=== PATIENT | female | born 1970 | race Caucasian/White ===

== ENCOUNTER 2019-06-04 18:15 | Emergency (ER) | payer BC, SELFPAY ==
--- NOTE | 2019-06-04 18:33 | ED.NAVMDI ---
HPI - Nausea/Vomiting/Diarrhea General Chief complaint: Nausea/Vomiting/Diarrhea Stated complaint: muscle aches, dry mouth, back pain, vomitting Time Seen by Provider: 06/04/19 18:34 Source: patient and RN notes reviewed Mode of arrival: ambulatory Limitations: no limitations History of Present Illness HPI Narrative: patient states she has a history of acute renal failure off and on. She can feel when she gets dehydrated. She says that she has had some nausea vomiting and diarrhea. She has had this many times in the past. She usually gets some fluid through IV feels better. MD elicited complaint: nausea, vomiting and diarrhea Onset (ago): hour(s) (10) Description of vomiting: food contents Description of diarrhea: lose Associated nausea: Yes Associated abdominal pain: No Exacerbating factors: eating Relieving factors: none Associated symptoms: myalgias and loss of appetite Related Data Home Medications Medication Instructions Recorded Confirmed albuterol sulfate 1.25 mg/3 mL 1.25 mg INHALATION Q4-6H PRN 06/02/19 06/04/19 solution for nebulization albuterol sulfate 90 mcg/actuation 1 inhalation INHALATION Q4H 06/02/19 06/04/19 aerosol inhaler atorvastatin 40 mg tablet 40 mg PO DAILY 06/02/19 06/04/19 budesonide-formoterol HFA 160 2 puff INHALATION Q12H 06/02/19 06/04/19 mcg-4.5 mcg/actuation aerosol inhaler compress.stocking,knee,reg,lrg #2 each 06/02/19 06/04/19 hydroxychloroquine 200 mg tablet 200 mg PO BID 06/02/19 06/04/19 leflunomide 20 mg tablet 20 mg PO DAILY 06/02/19 06/04/19 loratadine 10 mg capsule 10 mg PO DAILY 06/02/19 06/04/19 metoprolol succinate 50 mg 50 mg PO DAILY 06/02/19 06/04/19 tablet,extended release 24 hr nystatin 100,000 unit/gram topical 1 applic TOPICAL BID 06/02/19 06/04/19 powder omeprazole 20 mg capsule,delayed 20 mg PO DAILY 06/02/19 06/04/19 release potassium chloride 20 mEq 20 meq PO DAILY 06/02/19 06/04/19 tablet,extended release pregabalin 200 mg capsule 200 mg PO BID 06/02/19 06/04/19 quetiapine 50 mg tablet 50 mg PO BID 06/02/19 06/04/19 lisinopril 10 mg BYMOUTH DAILY 06/04/19 06/04/19 sertraline 100 mg DAILY 06/04/19 06/04/19 Allergies Allergy/AdvReac Type Severity Reaction Status Date / Time Iodine and Iodide Containing Allergy Severe Anaphylactic Verified 06/02/19 16:22 Produc Shock cephalexin Allergy Intermediate NAUSEA/ Verified 06/02/19 16:22 VOMITING codeine Allergy Unknown Mood swings Verified 06/02/19 16:22 erythromycin base Allergy Unknown extreme Verified 06/02/19 16:22 vomitting morphine Allergy Unknown Hives Verified 06/02/19 16:22 Penicillins Allergy Unknown Hives Verified 06/02/19 16:22 clarithromycin Allergy Diarrhea Verified 06/04/19 18:44 cefazolin AdvReac Intermediate Hives / Verified 06/02/19 16:22 Red Face Review of Systems Constitutional: Constitutional: Denies chills and Denies fever(s) ENT: Reports system reviewed and no additional complaints, except as documented Cardiovascular: Cardiovascular: Reports no additional cardiovascular complaints Respiratory: Respiratory: Reports no additional respiratory complaints Gastrointestinal: Gastrointestinal: Denies constipation and Denies heartburn Genitourinary: Genitourinary: Reports no additional female genitourinary complaints and Denies dysuria Musculoskeletal: Musculoskeletal: Reports back pain (Chronic) Integumentary/Breasts: Skin/Breast: Denies erythema and Denies rash Neurologic: Reports system reviewed and no additional complaints, except as documented Psychiatric: Psychiatric: Reports no additional psychiatric complaints [facility] Past Medical History Medical History COPD (chronic obstructive pulmonary disease) HANSEN (dyspnea on exertion) Dyslipidemia Edema Essential hypertension History of pulmonary embolism History of stroke Surgical History Surgical History (Reviewed 06/04/19 @ 18:45 by Kristofer Frazier
[2019-06-04 18:38] VITALS: BP 128/68; PULSE 92; RESP 16; TEMP 36.6; O2SAT 96
[2019-06-04 18:59] LABS: Add Urine Microscopic? YES; Appearance Urine Cloudy (Clear); Basophils Percent Auto 0.9 % (0.0-1.0); Bilirubin Urine 1+ (Negative); Blood Urine Negative (Negative); Color Urine Yellow (Yellow); Eosinophils Absolute Auto 0.51 K/mm3 (0.02-0.50); Eosinophils Percent Auto 4.5 % (1.0-6.0); Glucose Urine UA Negative (Negative); Hematocrit 38.8 % (35.0-49.0); Hemoglobin 12.2 g/dL (12.0-15.0); Immature Granulocyte Absolute 0.03 K/mm3 (0.00-0.00); Immature Granulocyte Percent A 0.3 % (0.0-0.0); Ketones Urine 1+ (Negative); Leukocyte Esterase Ur Negative LEU/UL (Negative); Lymphocytes Absolute Auto 1.33 K/mm3 (1.10-4.50); Lymphocytes Percent Auto 11.8 % (18.0-42.0); Mean Corpuscular HGB Conc 31.4 g/dL (32.0-36.0); Mean Corpuscular Hemoglobin 28.7 pg (27.0-31.0); Mean Corpuscular Volume 91.3 fL (78.0-102.0); Mean Platelet Volume 10.9 fl (9.2-11.8); Monocytes Absolute Auto 1.13 K/mm3 (0.10-0.90); Neutrophils Absolute Auto 8.2 K/mm3 (1.7-7.2); Neutrophils Percent Auto 72.5 % (50.0-70.0); Nitrate Urine Negative (Negative); Platelet Count Result 212 K/mm3 (150-420); Protein Urine 3+ (Negative); Red Blood Count 4.25 M/mm3 (4.20-5.40); Red Cell Distribution Width 14.2 % (11.6-14.4); Specific Grav Ur >= 1.030 (1.010-1.020); Urobilinogen Urine 0.2 mg/dL (0.2-1.0); White Blood Count 11.3 K/mm3 (4.8-10.8); pH Urine 5.5 (5.0-8.0)
[2019-06-04 19:08] LABS: Bacteria Urine 4+ /hpf; RBC Urine 0-2 /hpf (0-2); Squamous Epithelial Cell Urine Many /hpf (Few); WBC Urine 0-3 /hpf (0-3)
[2019-06-04 19:09] LABS: Anion Gap 12.3 mmol/L (7-16); Blood Urea Nitrogen 28 mg/dL (7-18); Calcium 8.4 mg/dL (8.5-10.1); Carbon Dioxide 28 mmol/L (21-32); Chloride 99 mmol/L (98-108); Estimated Glomerular Filt Rate 33; Glucose 103 mg/dL (70-99); Osmolality Calculated 285 mOsm/kg (285-295); Potassium 4.3 mmol/L (3.5-5.1); Sodium 135 mmol/L (136-145)
[2019-06-04] MEDS: SODIUM CHLORIDE 0.9% IV 1,000 ML 1000 ML IV CONT (19:20)
[2019-06-04] MEDS: ONDANSETRON INJ 4 MG/2 ML VIAL IV PUSH (19:20)
[2019-06-04] MEDS: SODIUM CHLORIDE 0.9% IV 1,000 ML 999 ML (19:56)
[2019-06-04 20:36] VITALS: BP 111/44; O2SAT 96
== END 2019-06-04 20:37 | disposition home or self-care (01) ==
PROVIDERS: Emergency Provider Emergency Medicine; PCP Internal Medicine
DX: E86.0 Dehydration (principal); N17.9 Acute kidney failure, unspecified; F17.200 Nicotine dependence, unspecified, uncomplicated
CPT/HCPCS: 36415; 80048; 81001; 85025; 86140; 96361; 96374; 99282; 99284; J2405; J7030

== ENCOUNTER 2020-01-22 10:51 | Outpatient (NON) | payer MEDICARE, SELFPAY ==
[2020-01-22 11:24] LABS: Basophils Absolute Auto 0.07 K/mm3 (0.00-0.10); Basophils Percent Auto 1.1 % (0.0-1.0); Eosinophils Percent Auto 6.2 % (1.0-6.0); Hematocrit 36.2 % (35.0-49.0); Hemoglobin 11.3 g/dL (12.0-15.0); Immature Granulocyte Absolute 0.02 K/mm3 (0.00-0.00); Immature Granulocyte Percent A 0.3 % (0.0-0.0); Lymphocytes Absolute Auto 1.26 K/mm3 (1.10-4.50); Lymphocytes Percent Auto 19.5 % (18.0-42.0); Mean Corpuscular HGB Conc 31.2 g/dL (32.0-36.0); Mean Corpuscular Hemoglobin 28.3 pg (27.0-31.0); Mean Corpuscular Volume 90.5 fL (78.0-102.0); Monocytes Absolute Auto 0.47 K/mm3 (0.10-0.90); Monocytes Percent Auto 7.3 % (2.0-11.0); Neutrophils Absolute Auto 4.2 K/mm3 (1.7-7.2); Neutrophils Percent Auto 65.6 % (50.0-70.0); Platelet Count Result 227 K/mm3 (150-420); Red Cell Distribution Width 13.9 % (11.6-14.4); White Blood Count 6.5 K/mm3 (4.8-10.8)
[2020-01-22 12:31] LABS: Alanine Aminotransferase 20 U/L (14-59); Albumin Level 3.2 g/dL (3.4-5.0); Alkaline Phosphatase 71 U/L (46-116); Anion Gap 9 mmol/L (8-16); Aspartate Amino Transferase 13 U/L (15-37); Bilirubin,Total 0.2 mg/dL (0.00-1.00); Blood Urea Nitrogen 7 mg/dL (7-18); Calcium 8.5 mg/dL (8.5-10.1); Carbon Dioxide 32 mmol/L (21-32); Chloride 103 mmol/L (98-108); Estimated Glomerular Filt Rate > 60; Glucose 137 mg/dL (70-99); Osmolality Calculated 298 mOsm/kg (285-295); Potassium 3.4 mmol/L (3.5-5.1); Sodium 144 mmol/L (136-145); Total Protein 6.1 g/dL (6.4-8.2)
[2020-01-22 13:42] LABS: Vancomycin Trough 21.2 ug/mL (10.0-15.0)
== END 2020-01-22 10:52 ==
DX: L03.115 Cellulitis of right lower limb (principal)
CPT/HCPCS: 36415; 80053; 80202; 85025

== ENCOUNTER 2020-01-24 11:00 | Outpatient (NON) | payer MEDICARE, SELFPAY ==
[2020-01-24 11:36] LABS: Vancomycin Trough 16.3 ug/mL (10.0-15.0)
== END 2020-01-24 11:01 ==
LOC: CHSLAB 11:08
DX: L03.115 Cellulitis of right lower limb (principal)
CPT/HCPCS: 36415; 80202

== ENCOUNTER 2020-01-29 16:43 | Outpatient (NON) | payer MEDICARE, SELFPAY ==
[2020-01-29 17:29] LABS: Basophils Absolute Auto 0.09 K/mm3 (0.00-0.10); Basophils Percent Auto 1.3 % (0.0-1.0); Eosinophils Absolute Auto 0.39 K/mm3 (0.02-0.50); Eosinophils Percent Auto 5.5 % (1.0-6.0); Hematocrit 42.8 % (35.0-49.0); Immature Granulocyte Absolute 0.02 K/mm3 (0.00-0.00); Immature Granulocyte Percent A 0.3 % (0.0-0.0); Lymphocytes Absolute Auto 1.33 K/mm3 (1.10-4.50); Lymphocytes Percent Auto 18.6 % (18.0-42.0); Mean Corpuscular HGB Conc 30.4 g/dL (32.0-36.0); Mean Corpuscular Hemoglobin 27.8 pg (27.0-31.0); Mean Corpuscular Volume 91.6 fL (78.0-102.0); Mean Platelet Volume 11.6 fl (9.2-11.8); Monocytes Absolute Auto 0.62 K/mm3 (0.10-0.90); Monocytes Percent Auto 8.7 % (2.0-11.0); Neutrophils Absolute Auto 4.7 K/mm3 (1.7-7.2); Neutrophils Percent Auto 65.6 % (50.0-70.0); Platelet Count Result 278 K/mm3 (150-420); Red Blood Count 4.67 M/mm3 (4.20-5.40); White Blood Count 7.1 K/mm3 (4.8-10.8)
[2020-01-29 17:44] LABS: Alanine Aminotransferase 25 U/L (14-59); Albumin Level 3.8 g/dL (3.4-5.0); Alkaline Phosphatase 89 U/L (46-116); Anion Gap 7 mmol/L (8-16); Aspartate Amino Transferase 18 U/L (15-37); Bilirubin,Total 0.2 mg/dL (0.00-1.00); Blood Urea Nitrogen 9 mg/dL (7-18); Carbon Dioxide 32 mmol/L (21-32); Chloride 102 mmol/L (98-108); Estimated Glomerular Filt Rate > 60; Glucose 101 mg/dL (70-99); Osmolality Calculated 290 mOsm/kg (285-295); Potassium 4.8 mmol/L (3.5-5.1); Sodium 141 mmol/L (136-145); Total Protein 7.1 g/dL (6.4-8.2); Vancomycin Trough 17.3 ug/mL (10.0-15.0)
== END 2020-01-29 16:44 ==
LOC: CHSLAB 16:47
DX: L03.115 Cellulitis of right lower limb (principal)
CPT/HCPCS: 36415; 80053; 80202; 85025

== ENCOUNTER 2020-02-05 10:35 | Outpatient (NON) | payer MEDICARE, SELFPAY ==
[2020-02-05 10:48] LABS: Basophils Absolute Auto 0.08 K/mm3 (0.00-0.10); Eosinophils Absolute Auto 0.28 K/mm3 (0.02-0.50); Eosinophils Percent Auto 3.5 % (1.0-6.0); Hematocrit 43.7 % (35.0-49.0); Hemoglobin 13.9 g/dL (12.0-15.0); Immature Granulocyte Absolute 0.03 K/mm3 (0.00-0.00); Immature Granulocyte Percent A 0.4 % (0.0-0.0); Lymphocytes Absolute Auto 1.19 K/mm3 (1.10-4.50); Lymphocytes Percent Auto 15.1 % (18.0-42.0); Mean Corpuscular HGB Conc 31.8 g/dL (32.0-36.0); Mean Corpuscular Hemoglobin 28.4 pg (27.0-31.0); Mean Corpuscular Volume 89.2 fL (78.0-102.0); Mean Platelet Volume 11.4 fl (9.2-11.8); Monocytes Absolute Auto 0.78 K/mm3 (0.10-0.90); Monocytes Percent Auto 9.9 % (2.0-11.0); Neutrophils Absolute Auto 5.5 K/mm3 (1.7-7.2); Neutrophils Percent Auto 70.1 % (50.0-70.0); Platelet Count Result 244 K/mm3 (150-420); Red Cell Distribution Width 13.9 % (11.6-14.4); White Blood Count 7.9 K/mm3 (4.8-10.8)
[2020-02-05 12:29] LABS: Alanine Aminotransferase 29 U/L (14-59); Alkaline Phosphatase 99 U/L (46-116); Anion Gap 8 mmol/L (8-16); Aspartate Amino Transferase 20 U/L (15-37); Bilirubin,Total 0.3 mg/dL (0.00-1.00); Blood Urea Nitrogen 15 mg/dL (7-18); Calcium 9.4 mg/dL (8.5-10.1); Carbon Dioxide 29 mmol/L (21-32); Chloride 104 mmol/L (98-108); Estimated Glomerular Filt Rate 41; Glucose 98 mg/dL (70-99); Osmolality Calculated 292 mOsm/kg (285-295); Potassium 4.8 mmol/L (3.5-5.1); Sodium 141 mmol/L (136-145); Total Protein 7.3 g/dL (6.4-8.2)
[2020-02-05 12:59] LABS: Vancomycin Trough 30.2 ug/mL (10.0-15.0)
== END 2020-02-05 10:36 ==
LOC: CHSLAB 10:38
DX: L03.115 Cellulitis of right lower limb (principal); Z79.2 Long term (current) use of antibiotics
CPT/HCPCS: 36415; 80053; 80202; 85025

== ENCOUNTER 2022-02-03 09:56 | Outpatient (CLI) | payer MEDICARE, MEDICAID, SELFPAY ==
[2022-02-09 04:20] LABS: Metanephrine, Free <25 pg/mL (<=57); Normetanephrine, Free 133 pg/mL (<=148); Total, Free (MN + NMN) 133 pg/mL (<=205)
[2022-02-09 15:45] LABS: PRA 2.34 ng/mL/h (0.25-5.82)
== END 2022-02-03 09:57 | disposition home or self-care (01) ==
PROVIDERS: PCP Internal Medicine; Visit Provider Internal Medicine Cardiovascular Disease
DX: E87.6 Hypokalemia (principal); I10 Essential (primary) hypertension; R09.89 Other specified symptoms and signs involving the circulatory and respiratory systems; I95.0 Idiopathic hypotension
CPT/HCPCS: 36415; 82088; 83835; 84244